=== PATIENT | female | born 1990 | race Caucasian/White ===

== ENCOUNTER 2021-08-24 12:01 | Emergency (ER) | payer OTHER ==
--- NOTE | 2021-08-24 12:12 | ERPHSYRPT ---
- History of Present Illness Time Seen by Provider: 08/24/21 12:11 Source: patient, family Exam Limitations: no limitations Physician History: This is a right-handed 31-year-old female who was consuming a large amount of alcohol over 2 days ago and fell onto a ge nail. The entire nail was removed from the site per patient report. She suffered a 1 cm skin laceration to the left forearm. She has been using topical antibiotic ointment. She has been keeping it clean with soap and water. She is here primarily for a tetanus injection. Timing/Duration: day(s) (Greater than 2 days ago) Quality: other (No significant pain) Location: extremities (Left forearm) Possible Causes: other (Fall onto a ge nail) Modifying Factors: Improves With: other (Topical antibiotic) Associated Symptoms: denies symptoms Allergies/Adverse Reactions: penicillin G Allergy (Severe, Verified 08/24/21 12:49) Shortness of Breath Penicillins Allergy (Verified 08/24/21 12:49) Hx Tetanus, Diphtheria Vaccination/Date Given: Yes (up to date) Hx Influenza Vaccination/Date Given: No Hx Pneumococcal Vaccination/Date Given: No Travel Risk - International Travel Have you traveled outside of the country in past 3 weeks: No - Coronavirus Screening Are you exhibiting any of the following symptoms?: No Close contact with a COVID-19 positive Pt in past 14-21 Days: No - Vaccine Status Have you recieved a Covid-19 vaccination: No - Review of Systems Constitutional: No Symptoms Eyes: No Symptoms Ears, Nose, & Throat: No Symptoms Respiratory: No Symptoms Cardiac: No Symptoms Abdominal/Gastrointestinal: No Symptoms Genitourinary Symptoms: No Symptoms Musculoskeletal: No Symptoms Skin: Other (1 cm laceration that is healing without evidence of pus or drainage from the site on the left forearm) Neurological: No Symptoms Psychological: No Symptoms Endocrine: No Symptoms Hematologic/Lymphatic: No Symptoms Immunological/Allergic: No Symptoms All Other Systems: Reviewed and Negative - Past Medical History Pertinent Past Medical History: Yes Neurological History: No Pertinent History, Migraines ENT History: No Pertinent History Cardiac History: No Pertinent History Respiratory History: Asthma Endocrine Medical History: No Pertinent History, Hypoglycemia Musculoskeletal History: No Pertinent History GI Medical History: No Pertinent History, Gallbladder Disease History: No Pertinent History Psycho-Social History: No Pertinent History, Depression, Anxiety Female Reproductive Disorders: No Pertinent History Other Medical History: sulfa burps - Past Surgical History Past Surgical History: Yes Neuro Surgical History: No Pertinent History Cardiac: No Pertinent History Respiratory: No Pertinent History Gastrointestinal: No Pertinent History, Cholecystectomy Genitourinary: No Pertinent History Musculoskeletal: No Pertinent History Female Surgical History: No Pertinent History, Tubal Ligation Other Surgical History: tubal Oct 2017 - Social History Smoking Status: Current every day smoker How long have you smoked: 10 years Exposure to second hand smoke: Yes Alcohol Use: None Drug Use: marijuana, none Patient Lives Alone: No Significant Family History: no pertinent family hx - Physical Exam General Appearance: no apparent distress, alert Eye Exam: PERRL/EOMI, eyes nml inspection Ears, Nose, Throat Exam: normal ENT inspection, moist mucous membranes Neck Exam: normal inspection, non-tender, supple, full range of motion Respiratory Exam: airway intact, No chest tenderness, No respiratory distress Gastrointestinal/Abdomen Exam: No tenderness Pelvic Exam: not done Rectal Exam: not done Back Exam: normal inspection, normal range of motion, CVA tenderness Extremity Exam: normal range of motion, lacerations (1 cm healing laceration without evidence of foreign body or drainage present. No significant tenderness to the area and no expressible fluid from the site.) Neurologic Exam: alert, oriented x 3, cooperative, security engineer II-XII nml as tested, normal mood/affect, nml cerebellar function, nml station & gait, sensation nml Skin Exam: laceration (See above) Lymphatic Exam: No adenopathy SpO2 Interpretation: normal O2 Delivery: Room Air - Course Nursing assessment & vital signs reviewed: Yes Ordered Tests: Medication Summary Discontinued Medications Generic Name Dose Route Start Last Admin Trade Name Nerissa PRN Reason Stop Dose Admin Diphtheria/Tetanus/Acell Pertussis 0.5 ml 08/24/21 12:26 Tdap --Diph,Pertuss(Acell),Tet Vac/Pf 0.5 Ml Vial IM 08/24/21 12:27 .ONCE ONE - Progress Progress: unchanged Progress Note: 08/24/21 12:54 Medical decision making: This patient's laceration is over 48 hours old. At this point, it appears to be healing well. I will prescribe her 5 days of an antibiotic to help prevent any infection from occurring. We will have her stop the topical antibiotic as there was a puncture present with the nail. There is no evidence of any retained foreign body and she completely remove the nail from the site per her report. Therefore, I will not perform an x-ray of the site. We will update her tetanus vaccination status. At this point, there is no need for any laceration repair Counseled pt/family regarding: diagnosis, need for follow-up - Departure Departure Disposition: Home Clinical Impression: Forearm laceration Condition: Stable Critical Care Time: No Referrals: DOCTOR,NO FAMILY [Primary Care Provider] - Follow up/PCP as directed Additional Instructions: Keep site clean daily with soap and water. Stop your topical antibiotic to the site. Take your oral antibiotics as prescribed. Use Tylenol and ibuprofen for pain control. Prescriptions: Smz/Tmp Ds Tablet [Bactrim Ds Tablet] 1 udtab PO BID #10 tablet
[2021-08-24] MEDS ORDERED: Adacel Vial IM ONE ×2 (12:26→12:55)
[2021-08-24 13:04] VITALS: O2SAT 98
[2021-08-24 13:54] VITALS: BP 123/88; PULSE 78
== END 2021-08-24 13:54 | disposition home or self-care (01) ==
LOC: ED 12:01
DX: S51.812A Laceration without foreign body of left forearm, initial encounter (principal); W19.XXXA Unspecified fall, initial encounter; W45.0XXA Nail entering through skin, initial encounter; Z72.0 Tobacco use; Z28.310 Unvaccinated for COVID-19
CPT/HCPCS: 90471; 90715; 99283

== ENCOUNTER 2022-06-10 22:13 | Emergency (ER) | payer OTHER ==
[2022-06-10] MEDS ORDERED: TYLENOL 325 MG PO ONE (23:28)
[2022-06-10] MEDS ORDERED: KEFLEX 500 MG ONE (23:35)
[2022-06-10] MEDS ORDERED: TYLENOL 325 MG ONE (23:35)
[2022-06-10] MEDS ORDERED: KEFLEX 500 MG PO ONE (23:36)
[2022-06-10 23:41] VITALS: BP 107/81; PULSE 69
[2022-06-10 23:42] VITALS: O2SAT 98
--- NOTE | 2022-06-10 23:42 | ERPHSYRPT ---
- History of Present Illness Time Seen by Provider: 06/10/22 23:33 Exam Limitations: no limitations Patient Subjective Stated Complaint: pt states I have this ear pain in addition to a sinus infection Triage Nursing Assessment: pt ambulated into the er; pt is axo x4; c/o left ear pain; no respiratory distress present; skin PDW; middle left ear is red; intermitten cough present; c/o nasal drainage; vitals wnl Physician History: 32-year-old female presents to our ED for evaluation of left ear pain and sinus tenderness for approximately 1 week. Symptoms are progressive. No ear drainage. No headache. No nausea or vomiting. No blurred vision. No headache. Symptoms are mild to moderate in intensity. No specific worsening improving factors. Patient voices no other complaints or concerns at this time. Advised that she is allergic to penicillin but she has had Keflex in the past without any complications. Timing/Duration: persistent Severity: moderate ENT Location: ear (L) Prearrival Treatment: no prearrival treatment Modifying Factors: Improves With: nothing Associated Symptoms: denies symptoms Allergies/Adverse Reactions: penicillin G Allergy (Severe, Verified 06/10/22 22:25) Shortness of Breath Penicillins Allergy (Verified 06/10/22 22:25) Home Medications: Paroxetine HCl 20 mg [Paxil 20 MG] 30 mg PO DAILY 06/10/22 [History] Hx Tetanus, Diphtheria Vaccination/Date Given: Yes Hx Influenza Vaccination/Date Given: No Hx Pneumococcal Vaccination/Date Given: No Travel Risk - International Travel Have you traveled outside of the country in past 3 weeks: No - Coronavirus Screening Are you exhibiting any of the following symptoms?: Yes Symptoms: Cough: New Onset Close contact with a COVID-19 positive Pt in past 14-21 Days: No - Vaccine Status Have you recieved a Covid-19 vaccination: Yes 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 - Review of Systems Constitutional: No Symptoms, No Fever, No Chills Eyes: No Symptoms Ears, Nose, & Throat: No Symptoms Respiratory: No Symptoms, No Cough, No Dyspnea Cardiac: No Symptoms, No Chest Pain, No Edema, No Syncope Abdominal/Gastrointestinal: No Symptoms, No Abdominal Pain, No Nausea, No Vomiting, No Diarrhea Genitourinary Symptoms: No Symptoms, No Dysuria Musculoskeletal: No Symptoms, No Back Pain, No Neck Pain Skin: No Symptoms, No Rash Neurological: No Symptoms, No Dizziness, No Focal Weakness, No Sensory Changes Psychological: No Symptoms Endocrine: No Symptoms Hematologic/Lymphatic: No Symptoms Immunological/Allergic: No Symptoms All Other Systems: Reviewed and Negative - Past Medical History Pertinent Past Medical History: Yes Neurological History: No Pertinent History, Migraines ENT History: No Pertinent History Cardiac History: No Pertinent History Respiratory History: Asthma Endocrine Medical History: Hypoglycemia Musculoskeletal History: No Pertinent History GI Medical History: Gallbladder Disease History: No Pertinent History Psycho-Social History: Depression, Anxiety Female Reproductive Disorders: No Pertinent History Other Medical History: sulfa burps, PTSD - Past Surgical History Past Surgical History: Yes Neuro Surgical History: No Pertinent History Cardiac: No Pertinent History Respiratory: No Pertinent History Gastrointestinal: Cholecystectomy Genitourinary: No Pertinent History Musculoskeletal: No Pertinent History Female Surgical History: Tubal Ligation Other Surgical History: tubal Oct 2017 - Social History Smoking Status: Light tobacco smoker How long have you smoked: 10 years Exposure to second hand smoke: Yes Alcohol Use: None Drug Use: none Patient Lives Alone: No Significant Family History: no pertinent family hx - Female History Hx Now: No - Nursing Vital Signs Nursing Vital Signs: Initial Vital Signs Temperature 98.1 F 06/10/22 22:27 Pulse Rate 96 H 06/10/22 22:27 Respiratory Rate 14 06/10/22 22:27 Blood Pressure 124/89 06/10/22 22:27 O2 Sat by Pulse Oximetry 98 06/10/22 22:27 Pain Scale Pain Intensity 6 - Physical Exam General Appearance: no apparent distress, alert Eye Exam: bilateral eye: normal inspection, PERRL, EOMI Ear Exam: right ear: auricle normal, canal normal, TM normal, bleeding Nasal Exam: normal inspection, sinus tenderness (Some left maxillary sinus tenderness) Throat Exam: normal, pharynx normal, moist mucus membranes, No tonsillar exudate Neck Exam: normal inspection, non-tender, supple, full range of motion Cardiovascular/Respiratory Exam: chest non-tender, normal breath sounds, regular rate/rhythm Abdominal Exam: non-tender, soft Neurologic Exam: alert, oriented x 3, cooperative, sensation nml, No motor deficits Skin Exam: normal color, warm, dry SpO2 Interpretation: normal SpO2: 98 O2 Delivery: Room Air - Course Nursing assessment & vital signs reviewed: Yes Ordered Tests: Medication Summary Discontinued Medications Generic Name Dose Route Start Last Admin Trade Name Nerissa PRN Reason Stop Dose Admin Acetaminophen 975 mg 06/10/22 23:28 Acetaminophen 325 Mg Tablet PO 06/10/22 23:29 STAT ONE - Progress Progress: improved Progress Note: 32-year-old female presents with left ear pain and sinus tenderness. Physical exam reveals otitis media and otitis externa. There is some evidence of sinusitis. Complexity of problem addressed is low acute noncomplicated Complexity of data reviewed and analyzed is none. No specialized testing. Diagnosis based on history and physical examination. Risk of complication and or risk of morbidity/mortality patient management is moderate. Patient received a prescription for Ciprodex as well as Keflex. A dose of Keflex was administered in our ED. Patient also received a dose of Tylenol for pain control. Patient patient ready for discharge. She voices no other complaints concerns at this time. No social determinants of health present to impede follow-up. Vital stable. Patient voices no other complaints or concerns at this time. Portions of this note were created with voice recognition technology. There may be grammatical, spelling, punctuation or sound alike errors 06/10/22 23:48 Counseled pt/family regarding: diagnosis, need for follow-up - Departure Departure Disposition: Home Clinical Impression: Otitis media, Otitis externa, Sinusitis Condition: Stable Critical Care Time: No Referrals: CE MILLER [Primary Care Provider] - Follow up/PCP as directed Additional Instructions: Discharge/Care Plan GABRIELLE EL was seen on 06/10/22 in the Emergency Room. The patient was counseled regarding Diagnosis,Lab results, Imaging studies, need for follow up and when to return to the Emergency Room. Prescriptions given: Discharge Note I have spoken with the patient and/or caregivers. I have explained the patient's condition, diagnosis and treatment plan based on the information available to me at this time. I have answered the patient's and/or caregiver's questions and addressed any concerns. The patient and/or caregivers have as good understanding of the patient's diagnosis, condition and treatment plan as can be expected at this point. The vital signs have been stable. The patient's condition is stable and appropriate for discharge from the emergency department. The patient will pursue further outpatient evaluation with the primary care physician or other designated or consulting physician as outlined in the discharge instructions. The patient and/or caregivers are agreeable to this plan of care and follow-up instructions have been explained in detail. The patient and/or caregivers have received these instruction. The patient/and or caregivers are aware that any significant change in condition or worsening of symptoms should prompt an immediate return to this or the closest emergency department or call 911. Prescriptions: Ciprofloxacin HCl/Dexameth [Ciproflox-Dexameth Otic Susp] 4 drops OT TID 7 Days #1 unit Cephalexin Mh 500 mg [Keflex 500 mg] 500 mg PO TID 7 Days #21 cap
== END 2022-06-10 23:55 | disposition home or self-care (01) ==
LOC: ED 22:13
DX: H66.92 Otitis media, unspecified, left ear (principal); H60.92 Unspecified otitis externa, left ear; J32.9 Chronic sinusitis, unspecified; Z79.899 Other long term (current) drug therapy; Z72.0 Tobacco use
CPT/HCPCS: 99282; A9270-GY

== ENCOUNTER 2022-09-03 00:33 | Emergency (ER) | payer OTHER ==
[2022-09-03 01:22] LABS: Absolute Neutrophil Ct (ANC) 16.62 x10^3/uL (1.4-6.9); BASOPHIL % 0.2 % (0.0-0.4); Basophil (Absolute #) 0.04 x10^3/uL (0-0.4); Eosinophil % 0.1 % (0.00-5.0); Eosinophil (Absolute #) 0.01 x10^3/uL (0-0.5); Hematocrit 37.3 % (35-47); Hemoglobin 12.4 g/dL (12.0-16.0); IMMATURE GRAN # 0.11 x10^3u/L (0.00-0.03); IMMATURE GRAN % 0.6 % (0.00-0.4); Lymphocyte (Absolute #) 0.67 x10^3/uL (1.0-4.6); Lymphocytes % 3.7 % (24.0-44.0); Mean Cell Volume 86.3 fL (78-100); Mean Corpuscular Hemoglobin 28.7 pg (26-32); Mean Corpuscular Hgb Concent. 33.2 g/dL (32-36); Mean Platelet Volume 9.4 fL (7.5-11.0); Monocyte (Absolute #) 0.46 x10^3/uL (0.0-1.3); Monocytes % 2.6 % (0.0-12.0); Neutrophil % 92.8 % (36.0-66.0); Platelet Count 210 x10^3/uL (150-450); Red Blood Count 4.32 x10^6/uL (4.1-5.4); Red Cell Distribution Width 12.9 % (11.5-14.0); White Blood Count 17.9 x10^3/uL (4.0-10.5)
[2022-09-03 01:33] LABS: ALBUMIN 3.7 g/dL (3.5-5.0); ALKALINE PHOSPHATASE 130 U/L (38-126); ANION GAP 15.9 MEQ/L (5-15); BLOOD UREA NITROGEN 8 mg/dL (7-17); CHLORIDE 100 mmol/L (98-107); Calcium 8.2 mg/dL (8.4-10.2); Carbon Dioxide 19 mmol/L (22-30); EST GLOMERULAR FILTRATION RATE > 60.0 ML/MIN; Glucose 144 mg/dL (74-106); SGOT/AST 47 U/L (14-36); SODIUM 133 mmol/L (137-145); Total Protein 7.3 g/dL (6.3-8.2)
[2022-09-03] MEDS ORDERED: Sodium Chloride 0.9% 1000 ML 1,000 ML ONE ×2 (01:34→02:21)
[2022-09-03] MEDS: Sodium Chloride 0.9% 1000 ML 1,000 ML IV STA ×2 (01:35→02:48)
[2022-09-03 01:40] LABS: SGPT/ALT 49 U/L (0-35)
[2022-09-03 01:56] LABS: INFLUENZA A NEGATIVE (NEGATIVE); INFLUENZA B NEGATIVE (NEGATIVE); RESPIRATORY SYNCTIAL VIRUS NEGATIVE (NEGATIVE); SARS-CoV-2 Xpert Express NEGATIVE (NEGATIVE)
[2022-09-03 02:04] LABS: ADD URINE CULTURE? YES (NO); Appearance Cloudy (Clear); Bacteria Many /HPF (None Seen); Bilirubin Negative (Negative); Blood Moderate (Negative); Epithelial Cells Rare /HPF (None Seen); Glucose, Urine 250 mg/dL (Negative); Ketones Trace (Negative); Leukocyte Esterase Moderate (Negative); Nitrite Positive (Negative); Ph 5.5 (4.6-8.0); Protein,Urine Dip 300 (Negative); WBC 21-50 /HPF (0-5)
[2022-09-03] MEDS ORDERED: LEVOFLOXACIN 750MG/150ML D5W 750 MG/150 ML BAG IV ONE (02:21)
[2022-09-03] MEDS: LEVOFLOXACIN 750MG/150ML D5W 750 MG/150 ML BAG IV STA (02:28)
[2022-09-03] MEDS ORDERED: ROCEPHIN 1 Gm-D5w 50 ml Bag** 1 G/50 ML IVPB IV ONE (02:31)
[2022-09-03] MEDS ORDERED: K-LYTE ONE (02:31)
[2022-09-03] MEDS: K-LYTE PO ONE (02:35)
[2022-09-03] MEDS: ROCEPHIN 1 Gm-D5w 50 ml Bag** 1 G/50 ML IVPB IV STA (02:35)
[2022-09-03 02:45] VITALS: PULSE 112; O2SAT 96
--- NOTE | 2022-09-03 03:18 | ERPHSYRPT ---
- History of Present Illness Time Seen by Provider: 09/03/22 00:50 Source: patient Exam Limitations: no limitations Patient Subjective Stated Complaint: pt to ER with complaints of body aches, sweats, headache, fever, sob that started this morning around 0300. pt states sh dillon forgot to take her paxil and just started up adipex again Triage Nursing Assessment: Pt A&Ox4. pt ambulatory. skin warm, moist and pink. Physician History: Patient is a 32-year-old white female who presents with a complaint of sniffles fever cold sweats and body aches. She also complains of some nausea and back pain and headache. She also has had a runny nose. Timing/Duration: yesterday Severity: moderate Associated Symptoms: cough, fever Allergies/Adverse Reactions: penicillin G Allergy (Severe, Verified 09/03/22 00:49) Shortness of Breath Penicillins Allergy (Verified 09/03/22 00:49) Home Medications: Paroxetine HCl 20 mg [Paxil 20 MG] 30 mg PO DAILY 06/10/22 [History] Phentermine HCl 1 tab PO DAILY 09/03/22 [History] Hx Tetanus, Diphtheria Vaccination/Date Given: Yes Hx Influenza Vaccination/Date Given: No Hx Pneumococcal Vaccination/Date Given: No Travel Risk - International Travel Have you traveled outside of the country in past 3 weeks: No - Coronavirus Screening Are you exhibiting any of the following symptoms?: Yes Symptoms: Fever, Shortness of Breath, Headaches/Body Aches/Fatigue Close contact with a COVID-19 positive Pt in past 14-21 Days: No - Vaccine Status Have you recieved a Covid-19 vaccination: Yes 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: [employer] - Review of Systems Constitutional: Fever, Chills, Night Sweats Eyes: No Symptoms Ears, Nose, & Throat: Nose Congestion Respiratory: Cough, No Dyspnea Cardiac: No Chest Pain, No Edema, No Syncope Abdominal/Gastrointestinal: Nausea, No Abdominal Pain, No Vomiting, No Diarrhea Genitourinary Symptoms: No Dysuria Musculoskeletal: Back Pain, No Neck Pain Skin: No Rash Neurological: No Dizziness, No Focal Weakness, No Sensory Changes Psychological: No Symptoms Endocrine: No Symptoms All Other Systems: Reviewed and Negative - Past Medical History Pertinent Past Medical History: Yes Neurological History: No Pertinent History, Migraines ENT History: No Pertinent History Cardiac History: No Pertinent History Respiratory History: Asthma Endocrine Medical History: Hypoglycemia Musculoskeletal History: No Pertinent History GI Medical History: Gallbladder Disease History: No Pertinent History Psycho-Social History: Depression, Anxiety Female Reproductive Disorders: No Pertinent History Other Medical History: sulfa burps, PTSD - Past Surgical History Past Surgical History: Yes Neuro Surgical History: No Pertinent History Cardiac: No Pertinent History Respiratory: No Pertinent History Gastrointestinal: Cholecystectomy Genitourinary: No Pertinent History Musculoskeletal: No Pertinent History Female Surgical History: Tubal Ligation Other Surgical History: tubal Oct 2017 - Social History Smoking Status: Former smoker How long have you smoked: 10 years Exposure to second hand smoke: Yes Alcohol Use: None Drug Use: marijuana Patient Lives Alone: No Significant Family History: no pertinent family hx - Female History Hx Now: No - Nursing Vital Signs Nursing Vital Signs: Initial Vital Signs Temperature 99.0 F 09/03/22 00:39 Pulse Rate 108 H 09/03/22 00:39 Respiratory Rate 18 09/03/22 00:39 Blood Pressure 126/76 09/03/22 00:39 O2 Sat by Pulse Oximetry 97 09/03/22 00:39 Pain Scale Pain Intensity 6 - Physical Exam General Appearance: mild distress, alert Eye Exam: PERRL/EOMI, eyes nml inspection Ears, Nose, Throat Exam: normal ENT inspection, TMs normal, pharynx normal, mois t mucous membranes Neck Exam: normal inspection, non-tender, supple, full range of motion Respiratory Exam: normal breath sounds, lungs clear, No respiratory distress Cardiovascular Exam: regular rate/rhythm, normal heart sounds, normal peripheral pulses Gastrointestinal/Abdomen Exam: soft, normal bowel sounds, No tenderness, No mass Back Exam: normal inspection, normal range of motion, No CVA tenderness, No vertebral tenderness Extremity Exam: normal inspection, normal range of motion, pelvis stable Neurologic Exam: alert, oriented x 3, cooperative, normal mood/affect, nml cerebellar function, nml station & gait, sensation nml, No motor deficits Skin Exam: normal color, warm, dry, No rash Lymphatic Exam: No adenopathy SpO2 Interpretation: normal SpO2: 96 O2 Delivery: Room Air - Course Nursing assessment & vital signs reviewed: Yes - Radiology Exams Chest X-ray Interpretation: Interpreted by me, Negative Ordered Tests: Active Orders 24 hr Category Date Time Status IV Insertion STAT Care 09/03/22 00:59 Active CHEST 1 VIEW (PORTABLE) Stat Exams 09/03/22 01:19 Taken BLOOD CULTURE Stat Lab 09/03/22 01:30 Received CBC W DIFF Stat Lab 09/03/22 01:10 Completed CMP Stat Lab 09/03/22 01:10 Completed CULTURE,URINE Stat Lab 09/03/22 01:30 Received Lactic Acid Routine Lab 09/03/22 03:08 Completed Lactic Acid Stat Lab 09/03/22 01:11 Completed UA W/RFX UR CULTURE Stat Lab 09/03/22 01:30 Completed Medication Summary Generic Name Dose Route Start Last Admin Trade Name Freq PRN Reason Stop Dose Admin Levofloxacin/Dextrose 750 mg in 150 mls @ 100 mls/hr 09/03/22 02:16 09/03/22 02:28 Levofloxacin 750mg/150ml D5w IV 09/03/22 03:45 100 mls/hr STAT STA 100 mls/hr Administration Discontinued Medications Generic Name Dose Route Start Last Admin Trade Name Freq PRN Reason Stop Dose Admin Sodium Chloride 1,000 mls @ 999 mls/hr 09/03/22 00:59 09/03/22 01:35 Sodium Chloride 0.9% 1000 Ml IV 09/03/22 01:59 999 mls/hr .Q1H1M STA Administration Sodium Chloride Confirm 09/03/22 01:34 Sodium Chloride 0.9% 1000 Ml Administered 09/03/22 01:35 Dose 1,000 mls @ ud .ROUTE .STK-MED ONE Sodium Chloride 1,000 mls @ 999 mls/hr 09/03/22 02:17 09/03/22 02:48 Sodium Chloride 0.9% 1000 Ml IV 09/03/22 03:17 999 mls/hr .Q1H1M STA Administration Sodium Chloride Confirm 09/03/22 02:21 Sodium Chloride 0.9% 1000 Ml Administered 09/03/22 02:22 Dose 1,000 mls @ ud .ROUTE .STK-MED ONE Levofloxacin/Dextrose Confirm 09/03/22 02:21 Levofloxacin 750mg/150ml D5w Administered 09/03/22 02:22 Dose 750 mg in 150 mls @ ud IV .STK-MED ONE Ceftriaxone Sodium/Dextrose 1 g in 50 mls @ 100 mls/hr 09/03/22 02:27 09/03/22 02:35 Rocephin 1 Gm-D5w 50 Ml Bag IV 09/03/22 02:56 100 mls/hr STAT STA 100 mls/hr Administration Ceftriaxone Sodium/Dextrose Confirm 09/03/22 02:31 Rocephin 1 Gm-D5w 50 Ml Bag Administered 09/03/22 02:32 Dose 1 g in 50 mls @ ud IV .STK-MED ONE Potassium Bicarbonate 50 meq 09/03/22 02:30 09/03/22 02:35 Potassium Bicarbonate 25 Meq Tab PO 09/03/22 02:31 50 meq STAT ONE Administration Potassium Bicarbonate Confirm 09/03/22 02:31 Potassium Bicarbonate 25 Meq Tab Administered 09/03/22 02:32 Dose 50 meq .ROUTE .STK-MED ONE Lab/Rad Data: Laboratory Result Diagrams 09/03/22 01:10 09/03/22 01:10 Laboratory Results 09/03/22 09/03/22 09/03/22 Range/Units 03:08 01:30 01:11 WBC (4.0-10.5) x10^3/uL RBC (4.1-5.4) x10^6/uL Hgb (12.0-16.0) g/dL Hct (35-47) % MCV (78-100) fL MCH (26-32) pg MCHC (32-36) g/dL RDW (11.5-14.0) % Plt Count (150-450) x10^3/uL MPV (7.5-11.0) fL Gran % (36.0-66.0) % Immature Gran % (Auto) (0.00-0.4) % Nucleat RBC Rel Count (0.00-0.1) % Eos # (Auto) (0-0.5) x10^3/uL Immature Gran # (Auto) (0.00-0.03) x10^3u/L Absolute Lymphs (auto) (1.0-4.6) x10^3/uL Absolute Monos (auto) (0.0-1.3) x10^3/uL Absolute Nucleated RBC (0.00-0.01) x10^3u/L Lymphocytes % (24.0-44.0) % Monocytes % (0.0-12.0) % Eosinophils % (0.00-5.0) % Basophils % (0.0-0.4) % Absolute Granulocytes (1.4-6.9) x10^3/uL Basophils # (0-0.4) x10^3/uL Sodium (137-145) mmol/L Potassium (3.5-5.1) mmol/L Chloride (98-107) mmol/L Carbon Dioxide (22-30) mmol/L Anion Gap (5-15) MEQ/L BUN (7-17) mg/dL Creatinine (0.52-1.04) mg/dL Estimated GFR ML/MIN Glucose (74-106) mg/dL Lactic Acid 0.9 3.7 H (0.4-2.0) Calcium (8.4-10.2) mg/dL Total Bilirubin (0.2-1.3) mg/dL AST (14-36) U/L ALT (0-35) U/L Alkaline Phosphatase (38-126) U/L Serum Total Protein (6.3-8.2) g/dL Albumin (3.5-5.0) g/dL Urine Color Yellow (Yellow) Urine Appearance Cloudy A (Clear) Urine pH 5.5 (4.6-8.0) Ur Specific [place] 1.010 (1.005-1.030) Urine Protein 300 A (Negative) Urine Glucose (UA) 250 A (Negative) mg/dL Urine Ketones Trace A (Negative) Urine Blood Moderate A (Negative) Urine Nitrite Positive A (Negative) Urine Bilirubin Negative (Negative) Urine Urobilinogen 2.0 A (0.2) mg/dL Ur Leukocyte Esterase Moderate A (Negative) U Hyaline Cast (Auto) 3-5 A (0-2) /LPF Urine Microscopic RBC 6-10 A (0-5) /HPF Urine Microscopic WBC 21-50 A (0-5) /HPF Ur Epithelial Cells Rare (None Seen) /HPF Urine Bacteria Many A (None Seen) /HPF Urine Culture Reflexed YES (NO) Influenza Type A Ag (NEGATIVE) Influenza Type B Ag (NEGATIVE) RSV (PCR) (NEGATIVE) SARS-CoV-2 (PCR) (NEGATIVE) 09/03/22 09/03/22 09/03/22 Range/Units 01:10 01:10 01:10 WBC 17.9 H (4.0-10.5) x10^3/uL RBC 4.32 (4.1-5.4) x10^6/uL Hgb 12.4 (12.0-16.0) g/dL Hct 37.3 (35-47) % MCV 86.3 (78-100) fL MCH 28.7 (26-32) pg MCHC 33.2 (32-36) g/dL RDW 12.9 (11.5-14.0) % Plt Count 210 (150-450) x10^3/uL MPV 9.4 (7.5-11.0) fL Gran % 92.8 H (36.0-66.0) % Immature Gran % (Auto) 0.6 H (0.00-0.4) % Nucleat RBC Rel Count 0.0 (0.00-0.1) % Eos # (Auto) 0.01 (0-0.5) x10^3/uL Immature Gran # (Auto) 0.11 H (0.00-0.03) x10^3u/L Absolute Lymphs (auto) 0.67 L (1.0-4.6) x10^3/uL Absolute Monos (auto) 0.46 (0.0-1.3) x10^3/uL Absolute Nucleated RBC 0.00 (0.00-0.01) x10^3u/L Lymphocytes % 3.7 L (24.0-44.0) % Monocytes % 2.6 (0.0-12.0) % Eosinophils % 0.1 (0.00-5.0) % Basophils % 0.2 (0.0-0.4) % Absolute Granulocytes 16.62 H (1.4-6.9) x10^3/uL Basophils # 0.04 (0-0.4) x10^3/uL Sodium 133 L (137-145) mmol/L Potassium 3.0 L* (3.5-5.1) mmol/L Chloride 100 (98-107) mmol/L Carbon Dioxide 19 L (22-30) mmol/L Anion Gap 15.9 H (5-15) MEQ/L BUN 8 (7-17) mg/dL Creatinine 0.70 (0.52-1.04) mg/dL Estimated GFR > 60.0 ML/MIN Glucose 144 H (74-106) mg/dL Lactic Acid (0.4-2.0) Calcium 8.2 L (8.4-10.2) mg/dL Total Bilirubin 1.60 H (0.2-1.3) mg/dL AST 47 H (14-36) U/L ALT 49 H (0-35) U/L Alkaline Phosphatase 130 H (38-126) U/L Serum Total Protein 7.3 (6.3-8.2) g/dL Albumin 3.7 (3.5-5.0) g/dL Urine Color (Yellow) Urine Appearance (Clear) Urine pH (4.6-8.0) Ur Specific [place] (1.005-1.030) Urine Protein (Negative) Urine Glucose (UA) (Negative) mg/dL Urine Ketones (Negative) Urine Blood (Negative) Urine Nitrite (Negative) Urine Bilirubin (Negative) Urine Urobilinogen (0.2) mg/dL Ur Leukocyte Esterase (Negative) U Hyaline Cast (Auto) (0-2) /LPF Urine Microscopic RBC (0-5) /HPF Urine Microscopic WBC (0-5) /HPF Ur Epithelial Cells (None Seen) /HPF Urine Bacteria (None Seen) /HPF Urine Culture Reflexed (NO) Influenza Type A Ag NEGATIVE (NEGATIVE) Influenza Type B Ag NEGATIVE (NEGATIVE) RSV (PCR) NEGATIVE (NEGATIVE) SARS-CoV-2 (PCR) NEGATIVE (NEGATIVE) - Progress Progress: improved Medical Desision Making - Independent Historian Additional History obtained from: Spouse - Diagnostic Testing Diagnostic test were ordered, analyzed, and reviewed by me: Yes Radiological Interpretation: Interpreted by me - Risk of complications Low Risk: Low risk of morbidity from additional dx testing or treatment - Departure Departure Disposition: Home Clinical Impression: Urinary tract infection, Hypokalemia, Elevated liver function tests Condition: Stable Critical Care Time: No Referrals: CE MILLER [Primary Care Provider] - Follow up/PCP as directed Instructions: Urinary Tract Infection, Adult (DC) Prescriptions: Cephalexin Mh 500 mg [Keflex 500 mg] 500 mg PO QID #40 cap levoFLOXacin [Levofloxacin] 750 mg PO DAILY 10 Days #10 tablet
[2022-09-03 03:34] VITALS: BP 110/52
--- NOTE | 2022-09-03 08:42 | XRAY ---
Indication: Fever and bodyaches. Comparison: December 10, 2012 Portable chest again demonstrates normal heart, lungs, and bony thorax.
== END 2022-09-03 04:06 | disposition home or self-care (01) ==
LOC: ED 00:33
DX: N39.0 Urinary tract infection, site not specified (principal); E87.6 Hypokalemia; R94.5 Abnormal results of liver function studies; R50.9 Fever, unspecified; M79.10 Myalgia, unspecified site; R11.0 Nausea; M54.9 Dorsalgia, unspecified; R51.9 Headache, unspecified; Z79.899 Other long term (current) drug therapy
CPT/HCPCS: 0241U; 36000; 36415; 71045; 80053; 81001; 83605; 85025; 87040; 87077; 87086; 87186; 99284; 96360; 96361; 96365; 96367; J0696; J1956; A9270-GY

== ENCOUNTER 2024-05-01 18:43 | Emergency (ER) | payer OTHER ==
[2024-05-01 18:52] VITALS: TEMP 96.8
[2024-05-01] MEDS ORDERED: solu-MEDROL ONE (18:59)
[2024-05-01] MEDS ORDERED: Sterile H2O 10 ml IJ ONE (18:59)
[2024-05-01] MEDS: solu-MEDROL 125 MG, Sterile H2O 10 ml 2 ML IV ONE (19:00)
[2024-05-01] MEDS ORDERED: DUONEB 0.5-3 MG/3 ml Neb IH ONE ×2 (19:01→22:14)
[2024-05-01] MEDS: DUONEB 0.5-3 MG/3 ml Neb IH ONE ×2 (19:19→22:16)
[2024-05-01 19:32] LABS: Absolute Neutrophil Ct (ANC) 7.74 x10^3/uL (1.56-6.13); Basophil (Absolute #) 0.15 x10^3/uL (0.01-0.08); Eosinophil % 6.4 % (0.7-5.8); Eosinophil (Absolute #) 0.96 x10^3/uL (0.04-0.36); Hematocrit 41.5 % (34.1-44.9); Hemoglobin 14.3 g/dL (11.2-15.7); IMMATURE GRAN # 0.05 x10^3u/L (0.001-0.031); IMMATURE GRAN % 0.3 % (0.001-0.429); Lymphocyte (Absolute #) 4.91 x10^3/uL (1.18-3.74); Lymphocytes % 32.9 % (19.3-51.7); Mean Cell Volume 84.5 fL (79.4-94.8); Mean Corpuscular Hemoglobin 29.1 pg (25.6-32.2); Mean Corpuscular Hgb Concent. 34.5 g/dL (32.2-35.5); Mean Platelet Volume 9.9 fL (9.4-12.3); Monocyte (Absolute #) 1.13 x10^3/uL (0.24-0.86); Monocytes % 7.6 % (4.7-12.5); Neutrophil % 51.8 % (34.0-71.1); Platelet Count 294 x10^3/uL (182-369); Red Blood Count 4.91 x10^6/uL (3.93-5.22); Red Cell Distribution Width 12.8 % (11.7-14.4); White Blood Count 14.9 x10^3/uL (3.98-10.04)
[2024-05-01 19:47] LABS: ALBUMIN 4.4 g/dL (3.5-5.0); ANION GAP 17.9 MEQ/L (5-15); BILIRUBIN,TOTAL 0.4 mg/dL (0.2-1.3); Calcium 9.5 mg/dL (8.4-10.2); Creatinine 1 0.66 mg/dL (0.52-1.04); EST GLOMERULAR FILTRATION RATE 118.7 ML/MIN; Potassium 3.9 mmol/L (3.5-5.1); Total Protein 7.9 g/dL (6.3-8.2)
[2024-05-01 20:01] VITALS: O2SAT 97
[2024-05-01 20:11] LABS: INFLUENZA A NEGATIVE (NEGATIVE); INFLUENZA B NEGATIVE (NEGATIVE); RESPIRATORY SYNCTIAL VIRUS NEGATIVE (NEGATIVE); SARS-CoV-2 Xpert Express NEGATIVE (NEGATIVE)
--- NOTE | 2024-05-01 21:15 | ERPHSYRPT ---
- History of Present Illness Time Seen by Provider: 05/01/24 18:55 Source: patient Exam Limitations: no limitations Patient Subjective Stated Complaint: SOB Triage Nursing Assessment: Patient ambulated back to ED and transferred self to bed. Patient A+O X3. Patient's skin flushed, warm and dry. Patient complains of SOB that started earlier today that has gotten worse. Patient states she has chest tightening 5/10. Lungs noted to have wheezing throughout. Patient complains of productive cough with thick clear/green sputum. Physician History: Patient is a 34-year-old female presents to the emergency department for ev aluation of shortness of breath. Patient states symptoms started today. Patient complains of shortness of breath is gotten worse. Patient reports a chest tightening sensation. Patient is wheezing throughout. Wheezing associated with cough. No pain. No trauma no fever symptoms are mild to mode rate in intensity. Symptoms are worse with exertion. Symptoms improved with rest. Patient otherwise feels well. Patient states she has a history of asthma and her symptoms are similar. Patient voices no other complaints or concerns at this time. Portions of this note were created with voice recognition technology. There may be grammatical, spelling, punctuation or sound alike errors Timing/Duration: today Severity: moderate Modifying Factors: Improves With: nothing Associated Symptoms: denies symptoms Allergies/Adverse Reactions: penicillin G Allergy (Severe, Verified 05/01/24 18:45) Shortness of Breath Penicillins Allergy (Verified 05/01/24 18:45) Hx Tetanus, Diphtheria Vaccination/Date Given: Yes Hx Influenza Vaccination/Date Given: Yes Hx Pneumococcal Vaccination/Date Given: No Immunizations Up to Date: Yes Travel Risk - International Travel Have you traveled outside of the country in past 3 weeks: No - Emerging Infectious Disease Are you exhibiting symptoms associated with any current EIDs: No - Review of Systems Constitutional: No Symptoms, No Fever, No Chills Eyes: No Symptoms Ears, Nose, & Throat: No Symptoms Respiratory: No Cough, No Dyspnea Cardiac: No Symptoms, No Chest Pain, No Edema, No Syncope Abdominal/Gastrointestinal: No Symptoms, No Abdominal Pain, No Nausea, No Vomiting, No Diarrhea Genitourinary Symptoms: No Symptoms, No Dysuria Musculoskeletal: No Symptoms, No Back Pain, No Neck Pain Skin: No Symptoms, No Rash Neurological: No Symptoms, No Dizziness, No Focal Weakness, No Sensory Changes Psychological: No Symptoms Endocrine: No Symptoms Hematologic/Lymphatic: No Symptoms Immunological/Allergic: No Symptoms All Other Systems: Reviewed and Negative - Past Medical History Pertinent Past Medical History: Yes Neurological History: No Pertinent History, Migraines ENT History: No Pertinent History Cardiac History: No Pertinent History Respiratory History: Asthma Endocrine Medical History: Hypoglycemia Musculoskeletal History: No Pertinent History GI Medical History: Gallbladder Disease History: No Pertinent History Psycho-Social History: Depression, Anxiety Female Reproductive Disorders: No Pertinent History Other Medical History: sulfa burps, PTSD - Past Surgical History Past Surgical History: Yes Neuro Surgical History: No Pertinent History Cardiac: No Pertinent History Respiratory: No Pertinent History Gastrointestinal: Cholecystectomy Genitourinary: No Pertinent History Musculoskeletal: No Pertinent History Female Surgical History: Tubal Ligation Other Surgical History: tubal Oct 2017 Significant Family History: no pertinent family hx - Female History Hx Last Menstrual Period: last week Hx Now: No - Social History Smoking Status: Never smoker Exposure to second hand smoke: No Drug Use: marijuana - Social Determinants of Health Will the patient participate in the screening: Yes Do you worry about a steady place to live?: No Do you have any problems with any of the following?: No known problems In the past 12 months,have you had to go without utilities?: No Transportation Issues: No Has anyone in your support network made you feel unsafe?: No Have you or anyone in your house had to go w/o enough food: No - Nursing Vital Signs Nursing Vital Signs: Initial Vital Signs Pulse Rate 103 H 05/01/24 18:43 Respiratory Rate 13 05/01/24 18:43 Blood Pressure 174/107 05/01/24 18:43 O2 Sat by Pulse Oximetry 97 05/01/24 18:43 Pain Scale Pain Intensity 0 - Physical Exam General Appearance: no apparent distress, alert Eye Exam: PERRL/EOMI, eyes nml inspection Ears, Nose, Throat Exam: normal ENT inspection, TMs normal, pharynx normal, moist mucous membranes Neck Exam: normal inspection, non-tender, supple, full range of motion Respiratory Exam: normal breath sounds, lungs clear, airway intact, No respiratory distress Cardiovascular Exam: regular rate/rhythm, normal heart sounds, normal peripheral pulses Gastrointestinal/Abdomen Exam: soft, normal bowel sounds, No tenderness, No mass Back Exam: normal inspection, normal range of motion, No CVA tenderness, No vertebral tenderness Extremity Exam: normal inspection, normal range of motion, pelvis stable Neurologic Exam: alert, oriented x 3, cooperative, normal mood/affect, sensation nml, No motor deficits Skin Exam: normal color, warm, dry, No rash Lymphatic Exam: No adenopathy SpO2 Interpretation: normal SpO2: 97 O2 Delivery: Room Air - Course Nursing assessment & vital signs reviewed: Yes EKG Interpreted by Me: RATE (91), Sinus Rhythm, NORMAL AXIS, NORMAL INTERVALS, NORMAL QRS Ordered Tests: Active Orders 24 hr Category Date Time Status Quality Assurance Project Manager STAT Care 05/01/24 18:57 Active EKG-ER Only STAT Care 05/01/24 18:56 Active IV Insertion STAT Care 05/01/24 18:56 Active Pulse Oximetry (ED) STAT Care 05/01/24 18:56 Active CHEST 1 VIEW (PORTABLE) Stat Exams 05/01/24 20:22 Taken BLOOD CULTURE Stat Lab 05/01/24 19:21 Received CBC W DIFF Stat Lab 05/01/24 18:55 Completed CMP Stat Lab 05/01/24 18:55 Completed D-DIMER QUANTITATIVE Stat Lab 05/01/24 18:55 Completed HCG QUALITATIVE, URINE Stat Lab 05/01/24 Ordered TROPONIN Q4H Lab 05/01/24 18:55 Completed TROPONIN Q4H Lab 05/01/24 23:00 Ordered TROPONIN Q4H Lab 05/02/24 03:00 Ordered Respiratory Therapy Assessment DAILY RT 05/01/24 19:20 Active Medication Summary Generic Name Dose Route Start Last Admin Trade Name Freq PRN Reason Stop Dose Admin Albuterol Sulfate 8 gm 05/01/24 22:37 Albuterol Sulfate 8 Gm Mdi Hfa IH 05/31/24 22:36 Q4-6HPRN PRN SHORTNESS OF BREATH Discontinued Medications Generic Name Dose Route Start Last Admin Trade Name Freq PRN Reason Stop Dose Admin Albuterol/Ipratropium 3 ml 05/01/24 18:56 05/01/24 19:19 Ipratropium/Albuterol Sulfate 3 Ml Ampul.Neb IH 05/01/24 18:57 3 ml STAT ONE Administration Albuterol/Ipratropium Confirm 05/01/24 19:01 Ipratropium/Albuterol Sulfate 3 Ml Ampul.Neb Administered 05/01/24 19:02 Dose 3 ml IH .STK-MED ONE Albuterol/Ipratropium 3 ml 05/01/24 22:13 05/01/24 22:16 Ipratropium/Albuterol Sulfate 3 Ml Ampul.Neb IH 05/01/24 22:14 3 ml STAT ONE Administration Albuterol/Ipratropium Confirm 05/01/24 22:14 Ipratropium/Albuterol Sulfate 3 Ml Ampul.Neb Administered 05/01/24 22:15 Dose 3 ml IH .STK-MED ONE Methylprednisolone Sodium 0 mg 05/01/24 18:56 05/01/24 19:00 Succinate 125 mg/ Sterile IV 05/01/24 18:57 125 mg Water 2 ml STAT ONE Administration Methylprednisolone Sodium Succinate Confirm 05/01/24 18:59 Methylprednis Sod Succ 125 Mg/2 Ml Vial Administered 05/01/24 19:00 Dose 125 mg .ROUTE .STK-MED ONE Sterile Water Confirm 05/01/24 18:59 Water For Injection,Sterile 10 Ml Vial Administered 05/01/24 19:00 Dose 10 ml IJ .STK-MED ONE Lab/Rad Data: Laboratory Result Diagrams 05/01/24 18:55 05/01/24 18:55 Laboratory Results 05/01/24 05/01/24 05/01/24 Range/Units 19:18 18:55 18:55 WBC (3.98-10.04) x10^3/uL RBC (3.93-5.22) x10^6/uL Hgb (11.2-15.7) g/dL Hct (34.1-44.9) % MCV (79.4-94.8) fL MCH (25.6-32.2) pg MCHC (32.2-35.5) g/dL RDW (11.7-14.4) % Plt Count (182-369) x10^3/uL MPV (9.4-12.3) fL Gran % (34.0-71.1) % Immature Gran % (Auto) (0.001-0.429) % Nucleat RBC Rel Count (0.00-0.2) % Eos # (Auto) (0.04-0.36) x10^3/uL Immature Gran # (Auto) (0.001-0.031) x10^3u/L Absolute Lymphs (auto) (1.18-3.74) x10^3/uL Absolute Monos (auto) (0.24-0.86) x10^3/uL Absolute Nucleated RBC (0.00-0.012) x10^3u/L Lymphocytes % (19.3-51.7) % Monocytes % (4.7-12.5) % Eosinophils % (0.7-5.8) % Basophils % (0.1-1.2) % Absolute Granulocytes (1.56-6.13) x10^3/uL Basophils # (0.01-0.08) x10^3/uL D-Dimer 0.31 (0.0-0.50) mg/L Sodium (135-145) mmol/L Potassium (3.5-5.1) mmol/L Chloride (98-107) mmol/L Carbon Dioxide (22-30) mmol/L Anion Gap (5-15) MEQ/L BUN (7-17) mg/dL Creatinine (0.52-1.04) mg/dL Estimated GFR ML/MIN Glucose (74-106) mg/dL Calcium (8.4-10.2) mg/dL Total Bilirubin (0.2-1.3) mg/dL AST (14-36) U/L ALT (0-35) U/L Alkaline Phosphatase (38-126) U/L Troponin I < 0.012 (0.000-0.033) ng/mL Serum Total Protein (6.3-8.2) g/dL Albumin (3.5-5.0) g/dL Influenza Type A Ag NEGATIVE (NEGATIVE) Influenza Type B Ag NEGATIVE (NEGATIVE) RSV (PCR) NEGATIVE (NEGATIVE) SARS-CoV-2 (PCR) NEGATIVE (NEGATIVE) 05/01/24 05/01/24 Range/Units 18:55 18:55 WBC 14.9 H (3.98-10.04) x10^3/uL RBC 4.91 (3.93-5.22) x10^6/uL Hgb 14.3 (11.2-15.7) g/dL Hct 41.5 (34.1-44.9) % MCV 84.5 (79.4-94.8) fL MCH 29.1 (25.6-32.2) pg MCHC 34.5 (32.2-35.5) g/dL RDW 12.8 (11.7-14.4) % Plt Count 294 (182-369) x10^3/uL MPV 9.9 (9.4-12.3) fL Gran % 51.8 (34.0-71.1) % Immature Gran % (Auto) 0.3 (0.001-0.429) % Nucleat RBC Rel Count 0.0 (0.00-0.2) % Eos # (Auto) 0.96 H (0.04-0.36) x10^3/uL Immature Gran # (Auto) 0.05 H (0.001-0.031) x10^3u/L Absolute Lymphs (auto) 4.91 H (1.18-3.74) x10^3/uL Absolute Monos (auto) 1.13 H (0.24-0.86) x10^3/uL Absolute Nucleated RBC 0.00 (0.00-0.012) x10^3u/L Lymphocytes % 32.9 (19.3-51.7) % Monocytes % 7.6 (4.7-12.5) % Eosinophils % 6.4 H (0.7-5.8) % Basophils % 1.0 (0.1-1.2) % Absolute Granulocytes 7.74 H (1.56-6.13) x10^3/uL Basophils # 0.15 H (0.01-0.08) x10^3/uL D-Dimer (0.0-0.50) mg/L Sodium 140 (135-145) mmol/L Potassium 3.9 (3.5-5.1) mmol/L Chloride 108 H (98-107) mmol/L Carbon Dioxide 18 L (22-30) mmol/L Anion Gap 17.9 H (5-15) MEQ/L BUN 5 L (7-17) mg/dL Creatinine 0.66 (0.52-1.04) mg/dL Estimated GFR 118.7 ML/MIN Glucose 91 (74-106) mg/dL Calcium 9.5 (8.4-10.2) mg/dL Total Bilirubin 0.40 (0.2-1.3) mg/dL AST 43 H (14-36) U/L ALT 51 H (0-35) U/L Alkaline Phosphatase 74 (38-126) U/L Troponin I (0.000-0.033) ng/mL Serum Total Protein 7.9 (6.3-8.2) g/dL Albumin 4.4 (3.5-5.0) g/dL Influenza Type A Ag (NEGATIVE) Influenza Type B Ag (NEGATIVE) RSV (PCR) (NEGATIVE) SARS-CoV-2 (PCR) (NEGATIVE) - Progress Progress: improved Progress Note: 34-year-old female presents to emergency department for evaluation of a cough and shortness of breath. On exam patient is wheezing breath sounds are diminished. D-dimer negative. Troponin negative. Chest x-ray negative for acute pathology. Patient received Solu-Medrol and albuterol nebulizer treatment. Symptoms significantly improved. Patient ambulated throughout our ED. O2 sat with activity was at 97%. Patient states she felt well she think she is ready for discharge. Patient given an albuterol inhaler prior to discharge. A prescription for a Z-Brooks and prednisone was forwarded to patient's pharmacy. Patient agrees to follow-up with the primary care doctor within 48 hours for reevaluation. She voices no other complaints or concerns at this time. Portions of this note were created with voice recognition technology. There may be grammatical, spelling, punctuation or sound alike errors Complexity of problem addressed is moderate acute complicated no critical care time. Complex of data reviewed and analyzed is moderate. Test ordered chest reviewed results analyzed and correlated clinically with history and physical exam. Risk of complication and or risk of morbidity/mortality of patient management is low. Vital stable. Time spent to discharge patient is approximately 15 minutes. Plan of care established for shared decision making. No social determinants of health present to impede follow-up. Work note provided Portions of this note were created with voice recognition technology. There may be grammatical, spelling, punctuation or sound alike errors 05/01/24 22:49 Counseled pt/family regarding: lab results, diagnosis, need for follow-up, rad results - Departure Departure Disposition: Home Clinical Impression: Bronchitis, Cough Condition: Stable Critical Care Time: No Referrals: CE MILLER [Primary Care Provider] - Follow up/PCP as directed Additional Instructions: Discharge/Care Plan GABRIELLE EL was seen on 05/01/24 in the Emergency Room. The patient was counseled regarding Diagnosis,Lab results, Imaging studies, need for follow up and when to return to the Emergency Room. Prescriptions given: Discharge Note I have spoken with the patient and/or caregivers. I have explained the patient's condition, diagnosis and treatment plan based on the information available to me at this time. I have answered the patient's and/or caregiver's questions and add ressed any concerns. The patient and/or caregivers have as good understanding of the patient's diagnosis, condition and treatment plan as can be expected at this point. The vital signs have been stable. The patient's condition is stable and appropriate for discharge from the emergency department. The patient will pursue further outpatient evaluation with the primary care physician or other designated or consulting physician as outlined in the discharge instructions. The patient and/or caregivers are agreeable to this plan of care and follow-up instructions have been explained in detail. The patient and/or caregivers have received these instruction. The patient/and or caregivers are aware that any significant change in condition or worsening of symptoms should prompt an immediate return to this or the closest emergency department or call 911. Forms: Work/School Release Form Prescriptions: Prednisone 20 mg [Deltasone 20 mg] 40 mg PO DAILY 3 Days #4 tablet Azithromycin 250 mg [Zithromax 250 MG TABLET] 250 mg PO ZPACK #6 tablet
[2024-05-01 22:04] VITALS: BP 132/100
[2024-05-01 22:20] VITALS: PULSE 95; RESP 16
[2024-05-01] MEDS ORDERED: Ventolin Hfa MDI IH ONE (22:45)
[2024-05-01] MEDS: Ventolin Hfa MDI IH PRN (22:53)
--- NOTE | 2024-05-02 08:35 | XRAY ---
Indication: Cough. Short of breath. Comparison: September 03, 2022 Portable chest again demonstrates normal heart, lungs, and bony thorax.
== END 2024-05-01 22:56 | disposition home or self-care (01) ==
LOC: ED 18:43
DX: J40 Bronchitis, not specified as acute or chronic (principal); R05.1 Acute cough; R06.02 Shortness of breath; R07.9 Chest pain, unspecified; Z79.52 Long term (current) use of systemic steroids; Z79.899 Other long term (current) drug therapy
CPT/HCPCS: 0241U; 36415; 71045; 80053; 84484; 85025; 85379; 87040; 93005; 93041; 94640; 94760; 96374; 99285; 99284; J2919; A9270-GY

== ENCOUNTER 2024-05-30 18:35 | Emergency (ER) | payer SELFPAY ==
[2024-05-30 18:49] VITALS: TEMP 97
--- NOTE | 2024-05-30 19:32 | ERPHSYRPT ---
- History of Present Illness Time Seen by Provider: 05/30/24 19:20 Source: patient Exam Limitations: physical impairment Patient Subjective Stated Complaint: SOB Triage Nursing Assessment: Patient ambulated back to ED per self and transferred self to bed. Patient A+O X3. Patient's skin pink, warm and dry. Patient complains of SOB that stated a couple of hours ago. Patient states she was hanging out with her friends and had a couple of shot of liquir when she started having increased SOB. Patient's lungs clear a/p cyndy. Patient states she did wake up earlier with a dry cough and sounded wheezy this am. Patient denies pain or discomfort. Physician History: 34-year-old female history of bronchitis presents to our ED for evaluation of shortness of breath. Patient is a former smoker. Patient used to vape. She quit both approximately 2 to 3 months ago. Patient presents to our ED for evaluation of shortness of breath that started approximately 2 to 3 hours ago. However patient states that she has been coughing excessively over the past several days. No fever. No nausea vomiting or diaphoresis. No chest pain. Symptoms are mild to moderate in intensity. Shortness of breath somewhat worse with exertion. Patient otherwise feels well. She voices no other complaints or concerns at this time. Portions of this note were created with voice recognition technology. There may be grammatical, spelling, punctuation or sound alike errors Timing/Duration: today Activities at Onset: activity Severity of Dyspnea-Max: moderate Severity of Dyspnea-Current: mild Possible Cause: occasional episodes Modifying Factors: Improves With: activity Associated Symptoms: denies symptoms, No calf pain Allergies/Adverse Reactions: penicillin G Allergy (Severe, Verified 05/01/24 18:45) Shortness of Breath Penicillins Allergy (Verified 05/01/24 18:45) Home Medications: Paroxetine HCl 20 mg [Paxil 20 MG] 1 tab PO DAILY 05/30/24 [History] Hx Tetanus, Diphtheria Vaccination/Date Given: Yes Hx Influenza Vaccination/Date Given: No Hx Pneumococcal Vaccination/Date Given: No Immunizations Up to Date: Yes Travel Risk - International Travel Have you traveled outside of the country in past 3 weeks: No - Emerging Infectious Disease Are you exhibiting symptoms associated with any current EIDs: No - Review of Systems Constitutional: No Symptoms, No Fever, No Chills Eyes: No Symptoms Ears, Nose, & Throat: No Symptoms Respiratory: No Symptoms, No Cough, No Dyspnea Cardiac: No Symptoms, No Chest Pain, No Edema, No Syncope Abdominal/Gastrointestinal: No Symptoms, No Abdominal Pain, No Nausea, No Vomiting, No Diarrhea Genitourinary Symptoms: No Symptoms, No Dysuria Musculoskeletal: No Symptoms, No Back Pain, No Neck Pain Skin: No Symptoms, No Rash Neurological: No Symptoms, No Dizziness, No Focal Weakness, No Sensory Changes Psychological: No Symptoms Endocrine: No Symptoms Hematologic/Lymphatic: No Symptoms Immunological/Allergic: No Symptoms All Other Systems: Reviewed and Negative - Past Medical History Pertinent Past Medical History: Yes Neurological History: No Pertinent History, Migraines ENT History: No Pertinent History Cardiac History: No Pertinent History Respiratory History: Asthma Endocrine Medical History: Hypoglycemia Musculoskeletal History: No Pertinent History GI Medical History: Gallbladder Disease History: No Pertinent History Psycho-Social History: Depression, Anxiety Female Reproductive Disorders: No Pertinent History Other Medical History: sulfa burps, PTSD - Past Surgical History Past Surgical History: Yes Neuro Surgical History: No Pertinent History Cardiac: No Pertinent History Respiratory: No Pertinent History Gastrointestinal: Cholecystectomy Genitourinary: No Pertinent History Musculoskeletal: No Pertinent History Female Surgical History: Tubal Ligation Other Surgical History: tubal Oct 2017 Significant Family History: no pertinent family hx - Female History Hx Last Menstrual Period: 1 month ago Hx Now: No - Social History Smoking Status: Never smoker Exposure to second hand smoke: No Drug Use: marijuana - Social Determinants of Health Will the patient participate in the screening: Yes Do you worry about a steady place to live?: No Do you have any problems with any of the following?: No known problems In the past 12 months,have you had to go without utilities?: No Transportation Issues: No Has anyone in your support network made you feel unsafe?: No Have you or anyone in your house had to go w/o enough food: No - Nursing Vital Signs Nursing Vital Signs: Initial Vital Signs Temperature 97.0 F 05/30/24 18:42 Pulse Rate 96 H 05/30/24 18:42 Respiratory Rate 25 H 05/30/24 18:42 Blood Pressure 133/93 05/30/24 18:42 O2 Sat by Pulse Oximetry 95 05/30/24 18:42 Pain Scale Pain Intensity 0 - Physical Exam General Appearance: no apparent distress, alert Eye Exam: PERRL/EOMI Ears, Nose, Throat Exam: hearing grossly normal Neck Exam: normal inspection, supple, full range of motion Respiratory Exam: diminished breath sounds, wheezing Cardiovascular/Chest Exam: normal heart sounds, regular rate/rhythm Abdominal/Gastrointestinal Exam: soft, No tenderness, No distention, No mass Extremity Exam: non-tender, normal range of motion, normal inspection, no calf tenderness, no pedal edema Neurologic Exam: alert, oriented x 3, cooperative, 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, sensation nml, No motor deficits Skin Exam: normal color, warm, No dry Lymphatic Exam: No adenopathy SpO2 Interpretation: normal SpO2: 95 O2 Delivery: Room Air - Course Nursing assessment & vital signs reviewed: Yes EKG Interpreted by Me: RATE ([id number]), Sinus Rhythm, NORMAL AXIS, NORMAL INTERVALS, NORMAL QRS Ordered Tests: Active Orders 24 hr Category Date Time Status Change Analyst STAT Care 05/30/24 19:28 Active EKG-ER Only STAT Care 05/30/24 19:27 Active IV Insertion STAT Care 05/30/24 19:27 Active Pulse Oximetry (ED) STAT Care 05/30/24 19:27 Active CHEST 1 VIEW (PORTABLE) Stat Exams 05/30/24 20:12 Taken BLOOD CULTURE Stat Lab 05/30/24 19:52 Received CBC W DIFF Stat Lab 05/30/24 18:50 Completed CMP Stat Lab 05/30/24 18:50 Completed D-DIMER QUANTITATIVE Stat Lab 05/30/24 18:50 Completed NT PRO BNPII Stat Lab 05/30/24 18:50 Completed TROPONIN AM.LAB Lab 05/31/24 04:00 Ordered Respiratory Therapy Assessment DAILY RT 05/30/24 19:50 Active Medication Summary Generic Name Dose Route Start Last Admin Trade Name Freq PRN Reason Stop Dose Admin Albuterol Sulfate 8 gm 05/30/24 21:29 05/30/24 21:38 Albuterol Sulfate 8 Gm Mdi Hfa 06/29/24 21:28 8 gm Q4-6HPRN PRN Administration SHORTNESS OF BREATH/WHEEZING Discontinued Medications Generic Name Dose Route Start Last Admin Trade Name Freq PRN Reason Stop Dose Admin Albuterol Sulfate 2.5 mg 05/30/24 21:03 05/30/24 21:37 Albuterol Sulfate 2.5 Mg/3 Ml Neb 05/30/24 21:04 2.5 mg STAT ONE Administration Albuterol Sulfate Confirm 05/30/24 21:12 Albuterol Sulfate 2.5 Mg/3 Ml Neb Administered 05/30/24 21:13 Dose 2.5 mg IH .STK-MED ONE Albuterol/Ipratropium 3 ml 05/30/24 19:27 05/30/24 19:49 Ipratropium/Albuterol Sulfate 3 Ml Ampul.Neb IH 05/30/24 19:28 3 ml STAT ONE Administration Albuterol/Ipratropium Confirm 05/30/24 19:39 Ipratropium/Albuterol Sulfate 3 Ml Ampul.Neb Administered 05/30/24 19:40 Dose 3 ml IH .STK-MED ONE Methylprednisolone Sodium 0 mg 05/30/24 19:27 05/30/24 19:41 Succinate 125 mg/ Sterile IV 05/30/24 19:28 125 mg Water 2 ml STAT ONE Administration Methylprednisolone Sodium Succinate Confirm 05/30/24 19:35 Methylprednis Sod Succ 125 Mg/2 Ml Vial Administered 05/30/24 19:36 Dose 125 mg .ROUTE .STK-MED ONE Sterile Water Confirm 05/30/24 19:35 Water For Injection,Sterile 10 Ml Vial Administered 05/30/24 19:36 Dose 10 ml IJ .STK-MED ONE Lab/Rad Data: Laboratory Result Diagrams 05/30/24 18:50 05/30/24 18:50 Laboratory Results 05/30/24 05/30/24 05/30/24 Range/Units 19:52 18:50 18:50 WBC (3.98-10.04) x10^3/uL RBC (3.93-5.22) x10^6/uL Hgb (11.2-15.7) g/dL Hct (34.1-44.9) % MCV (79.4-94.8) fL MCH (25.6-32.2) pg MCHC (32.2-35.5) g/dL RDW (11.7-14.4) % Plt Count (182-369) x10^3/uL MPV (9.4-12.3) fL Gran % (34.0-71.1) % Immature Gran % (Auto) (0.001-0.429) % Nucleat RBC Rel Count (0.00-0.2) % Eos # (Auto) (0.04-0.36) x10^3/uL Immature Gran # (Auto) (0.001-0.031) x10^3u/L Absolute Lymphs (auto) (1.18-3.74) x10^3/uL Absolute Monos (auto) (0.24-0.86) x10^3/uL Absolute Nucleated RBC (0.00-0.012) x10^3u/L Lymphocytes % (19.3-51.7) % Monocytes % (4.7-12.5) % Eosinophils % (0.7-5.8) % Basophils % (0.1-1.2) % Absolute Granulocytes (1.56-6.13) x10^3/uL Basophils # (0.01-0.08) x10^3/uL D-Dimer 0.31 (0.0-0.50) mg/L Sodium 141 (135-145) mmol/L Potassium 3.6 (3.5-5.1) mmol/L Chloride 107 (98-107) mmol/L Carbon Dioxide 20 L (22-30) mmol/L Anion Gap 17.6 H (5-15) MEQ/L BUN 2 L (7-17) mg/dL Creatinine 0.65 (0.52-1.04) mg/dL Estimated GFR 119.2 ML/MIN Glucose 96 (74-106) mg/dL Calcium 8.8 (8.4-10.2) mg/dL Total Bilirubin 0.50 (0.2-1.3) mg/dL AST 66 H (14-36) U/L ALT 50 H (0-35) U/L Alkaline Phosphatase 72 (38-126) U/L NT-Pro-B Natriuret Pep 69.6 (<300) pg/mL Serum Total Protein 7.7 (6.3-8.2) g/dL Albumin 4.4 (3.5-5.0) g/dL Influenza Type A Ag NEGATIVE (NEGATIVE) Influenza Type B Ag NEGATIVE (NEGATIVE) RSV (PCR) NEGATIVE (NEGATIVE) SARS-CoV-2 (PCR) NEGATIVE (NEGATIVE) 05/30/24 Range/Units 18:50 WBC 10.7 H (3.98-10.04) x10^3/uL RBC 4.82 (3.93-5.22) x10^6/uL Hgb 13.9 (11.2-15.7) g/dL Hct 40.6 (34.1-44.9) % MCV 84.2 (79.4-94.8) fL MCH 28.8 (25.6-32.2) pg MCHC 34.2 (32.2-35.5) g/dL RDW 13.0 (11.7-14.4) % Plt Count 299 (182-369) x10^3/uL MPV 9.8 (9.4-12.3) fL Gran % 45.6 (34.0-71.1) % Immature Gran % (Auto) 0.3 (0.001-0.429) % Nucleat RBC Rel Count 0.0 (0.00-0.2) % Eos # (Auto) 0.51 H (0.04-0.36) x10^3/uL Immature Gran # (Auto) 0.03 (0.001-0.031) x10^3u/L Absolute Lymphs (auto) 4.26 H (1.18-3.74) x10^3/uL Absolute Monos (auto) 0.91 H (0.24-0.86) x10^3/uL Absolute Nucleated RBC 0.00 (0.00-0.012) x10^3u/L Lymphocytes % 39.9 (19.3-51.7) % Monocytes % 8.5 (4.7-12.5) % Eosinophils % 4.8 (0.7-5.8) % Basophils % 0.9 (0.1-1.2) % Absolute Granulocytes 4.86 (1.56-6.13) x10^3/uL Basophils # 0.10 H (0.01-0.08) x10^3/uL D-Dimer (0.0-0.50) mg/L Sodium (135-145) mmol/L Potassium (3.5-5.1) mmol/L Chloride (98-107) mmol/L Carbon Dioxide (22-30) mmol/L Anion Gap (5-15) MEQ/L BUN (7-17) mg/dL Creatinine (0.52-1.04) mg/dL Estimated GFR ML/MIN Glucose (74-106) mg/dL Calcium (8.4-10.2) mg/dL Total Bilirubin (0.2-1.3) mg/dL AST (14-36) U/L ALT (0-35) U/L Alkaline Phosphatase (38-126) U/L NT-Pro-B Natriuret Pep (<300) pg/mL Serum Total Protein (6.3-8.2) g/dL Albumin (3.5-5.0) g/dL Influenza Type A Ag (NEGATIVE) Influenza Type B Ag (NEGATIVE) RSV (PCR) (NEGATIVE) SARS-CoV-2 (PCR) (NEGATIVE) - Progress Progress: improved Air Movement: good Progress Note: 34-year-old female presents to emergency department for evaluation of shortness of breath. No chest pain. Patient has a history of bronchitis and states her symptoms are the same. On exam patient is wheezing breath sounds are diminished. D-dimer normal. Chest x-ray no acute pathology. Patient treated with steroids and neb Gaby treatment. Patient observed for approximately 3 to 4 hours. Symptoms significantly improved. We advise hospitalization as there is some residual wheezing present. Patient is ambulatory O2 was 94%. Patient declined admission. Patient states she feels well. Patient has to work in the morning and states that she does not want to be admitted. We provided patient an inhaler prior to discharge. A prescription for prednisone forwarded to patient's pharmacy. Patient agrees to follow-up with the primary care doctor within 48 hours for reevaluation. She voices no other complaints or concerns at this time. Portions of this note were created with voice recognition technology. There may be grammatical, spelling, punctuation or sound alike errors Complexity of problem addressed is moderate acute complicated. No critical care time. Complex of data reviewed and analyzed is moderate. Test ordered test reviewed results analyzed and correlated clinically with history and physical exam. Risk of complication and or risk of morbidity/mortality of patient management is moderate. A prescription for prednisone forwarded to patient's pharmacy. Albuterol inhaler provided to patient as well. No indication for antibiotic at this time. Vital stable. Time spent to discharge patient is approximately 15 minutes. Plan of care established for shared decision making. No social determinants of health present to impede follow-up. Portions of this note were created with voice recognition technology. There may be grammatical, spelling, punctuation or sound alike errors 05/30/24 22:38 05/30/24 22:38 Blood Culture(s) Obtained: Yes Antibiotics given: No Counseled pt/family regarding: lab results, diagnosis, need for follow-up, rad results - Departure Departure Disposition: Home Clinical Impression: Bronchitis Condition: Stable Critical Care Time: No Referrals: CE MILLER [Primary Care Provider] - Follow up/PCP as directed Additional Instructions: Discharge/Care Plan GABRIELLE EL was seen on 05/30/24 in the Emergency Room. The patient was counseled regarding Diagnosis,Lab results, Imaging studies, need for follow up and when to return to the Emergency Room. Prescriptions given: Discharge Note I have spoken with the patient and/or caregivers. I have explained the patient's condition, diagnosis and treatment plan based on the information available to me at this time. I have answered the patient's and/or caregiver's questions and addressed any concerns. The patient and/or caregivers have as good understanding of the patient's diagnosis, condition and treatment plan as can be expected at this point. The vital signs have been stable. The patient's condition is stable and appropriate for discharge from the emergency department. The patient will pursue further outpatient evaluation with the primary care physician or other designated or consulting physician as outlined in the discharge instructions. The patient and/or caregivers are agreeable to this plan of care and follow-up instructions have been explained in detail. The patient and/or caregivers have received these instruction. The patient/and or caregivers are aware that any significant change in condition or worsening of symptoms should prompt an immediate return to this or the closest emergency department or call 911. Prescriptions: Prednisone 10 mg [Deltasone 10 mg] 40 mg PO DAILY 3 Days #12 tablet
[2024-05-30] MEDS ORDERED: Sterile H2O 10 ml IJ ONE (19:35)
[2024-05-30] MEDS ORDERED: solu-MEDROL ONE (19:35)
[2024-05-30 19:36] LABS: Absolute Neutrophil Ct (ANC) 4.86 x10^3/uL (1.56-6.13); BASOPHIL % 0.9 % (0.1-1.2); Eosinophil % 4.8 % (0.7-5.8); Eosinophil (Absolute #) 0.51 x10^3/uL (0.04-0.36); Hematocrit 40.6 % (34.1-44.9); Hemoglobin 13.9 g/dL (11.2-15.7); IMMATURE GRAN # 0.03 x10^3u/L (0.001-0.031); IMMATURE GRAN % 0.3 % (0.001-0.429); Lymphocyte (Absolute #) 4.26 x10^3/uL (1.18-3.74); Lymphocytes % 39.9 % (19.3-51.7); Mean Cell Volume 84.2 fL (79.4-94.8); Mean Corpuscular Hemoglobin 28.8 pg (25.6-32.2); Mean Corpuscular Hgb Concent. 34.2 g/dL (32.2-35.5); Mean Platelet Volume 9.8 fL (9.4-12.3); Monocyte (Absolute #) 0.91 x10^3/uL (0.24-0.86); Monocytes % 8.5 % (4.7-12.5); Neutrophil % 45.6 % (34.0-71.1); Platelet Count 299 x10^3/uL (182-369); Red Blood Count 4.82 x10^6/uL (3.93-5.22); White Blood Count 10.7 x10^3/uL (3.98-10.04)
[2024-05-30] MEDS ORDERED: DUONEB 0.5-3 MG/3 ml Neb IH ONE (19:39)
[2024-05-30] MEDS: solu-MEDROL 125 MG, Sterile H2O 10 ml 2 ML IV ONE (19:41)
[2024-05-30] MEDS: DUONEB 0.5-3 MG/3 ml Neb IH ONE (19:49)
[2024-05-30 19:51] LABS: Potassium 3.6 mmol/L (3.5-5.1)
[2024-05-30 19:59] LABS: ALBUMIN 4.4 g/dL (3.5-5.0); BILIRUBIN,TOTAL 0.5 mg/dL (0.2-1.3); Calcium 8.8 mg/dL (8.4-10.2); Creatinine 1 0.65 mg/dL (0.52-1.04); EST GLOMERULAR FILTRATION RATE 119.2 ML/MIN; NT PRO BNPII 69.6 pg/mL (<300); Total Protein 7.7 g/dL (6.3-8.2)
[2024-05-30 20:00] LABS: ANION GAP 17.6 MEQ/L (5-15)
[2024-05-30 20:33] LABS: INFLUENZA A NEGATIVE (NEGATIVE); INFLUENZA B NEGATIVE (NEGATIVE); RESPIRATORY SYNCTIAL VIRUS NEGATIVE (NEGATIVE); SARS-CoV-2 Xpert Express NEGATIVE (NEGATIVE)
[2024-05-30] MEDS ORDERED: PROVENTIL 2.5 MG/3 ML NEB IH ONE (21:12)
[2024-05-30] MEDS ORDERED: Ventolin Hfa MDI IH ONE (21:31)
[2024-05-30] MEDS: PROVENTIL 2.5 MG/3 ML NEB IH ONE (21:37)
[2024-05-30] MEDS: Ventolin Hfa MDI IH PRN (21:38)
[2024-05-30 21:39] VITALS: O2SAT 95
[2024-05-30 22:52] VITALS: BP 146/97; PULSE 99; RESP 14
--- NOTE | 2024-05-31 08:41 | XRAY ---
Indication: Short of breath. Comparison: April 11, 2024 Portable chest less inflated and remains clear. Heart not enlarged. Bony thorax intact. No new/acute findings.
== END 2024-05-30 22:30 | disposition home or self-care (01) ==
LOC: ED 18:35
DX: J40 Bronchitis, not specified as acute or chronic (principal); R06.02 Shortness of breath; R05.1 Acute cough; Z79.52 Long term (current) use of systemic steroids; Z79.899 Other long term (current) drug therapy
CPT/HCPCS: 0241U; 36415; 71045; 80053; 83880; 85025; 85379; 87040; 93005; 93041; 94640; 94760; 96374; 99285; 99284; J2919; J7609; A9270-GY

== ENCOUNTER 2024-07-12 10:55 | Emergency (ER) | payer MEDICAID ==
[2024-07-12 11:20] VITALS: PULSE 78; O2SAT 98
[2024-07-12] MEDS ORDERED: Sterile H2O 10 ml IJ ONE (11:29)
[2024-07-12 11:30] VITALS: TEMP 97.5
[2024-07-12] MEDS ORDERED: Pepcid 20 MG ONE (11:30)
[2024-07-12] MEDS ORDERED: solu-MEDROL ONE (11:30)
[2024-07-12] MEDS: Pepcid 20 MG PO ONE (11:32)
[2024-07-12] MEDS: solu-MEDROL 125 MG, Sterile H2O 10 ml 2 ML IM ONE (11:33)
--- NOTE | 2024-07-12 12:05 | ERPHSYRPT ---
- History of Present Illness Time Seen by Provider: 07/12/24 10:59 Source: patient Exam Limitations: no limitations Patient Subjective Stated Complaint: C/O swelling to right side of face with ithcing and burning that began around 1pm yesterday. Denies new soaps, lotions, shampoo, meds, etc. Indicates she works at [employer] and takes money. She recalls handling some particularly dirty money yesterday and forgeting to wash her hand right away and may have touched her face. Triage Nursing Assessment: Patient ambulated back to ER without difficulties. No SOB. Airway patent. Right side of face is swollen. Alert and oriented. Physician History: 34 years old female presented in the ER with complaints of right-sided facial swelling which started with itching and burning sensation yesterday afternoon and continued to go worse. Patient reports she has been taking Benadryl but the swelling is increasing and initially it was on the right side of the face but now having the forehead and the left side of the face as well since morning. No difficulty movements of eyeball. No eye discharge. No toothache or sinus issues. 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 No difficulty breathing/swallowing/tongue swelling reported. Allergies/Adverse Reactions: penicillin G Allergy (Severe, Verified 07/12/24 11:06) Shortness of Breath Penicillins Allergy (Verified 07/12/24 11:06) Hx Tetanus, Diphtheria Vaccination/Date Given: Yes Hx Influenza Vaccination/Date Given: No Hx Pneumococcal Vaccination/Date Given: No Immunizations Up to Date: Yes Travel Risk - International Travel Have you traveled outside of the country in past 3 weeks: No - Emerging Infectious Disease Are you exhibiting symptoms associated with any current EIDs: No - Review of Systems Constitutional: No Symptoms Eyes: No Symptoms Respiratory: No Symptoms Cardiac: No Symptoms Abdominal/Gastrointestinal: No Symptoms Genitourinary Symptoms: No Symptoms Skin: Skin Lesions Neurological: No Symptoms Endocrine: No Symptoms Hematologic/Lymphatic: No Symptoms - Past Medical History Pertinent Past Medical History: Yes Neurological History: Migraines ENT History: No Pertinent History Cardiac History: No Pertinent History Respiratory History: No Pertinent History Endocrine Medical History: Hypoglycemia Musculoskeletal History: No Pertinent History GI Medical History: Gallbladder Disease History: No Pertinent History Psycho-Social History: Anxiety, Depression, Other Female Reproductive Disorders: No Pertinent History Other Medical History: PTSD - Past Surgical History Past Surgical History: Yes Neuro Surgical History: No Pertinent History Cardiac: No Pertinent History Respiratory: No Pertinent History Gastrointestinal: Cholecystectomy Genitourinary: No Pertinent History Musculoskeletal: No Pertinent History Female Surgical History: Tubal Ligation Other Surgical History: tubal Oct 2017 Significant Family History: no pertinent family hx - Female History Hx Last Menstrual Period: 1 month ago Hx Now: No (tubal) - Social History Smoking Status: Never smoker Exposure to second hand smoke: No Drug Use: none - Social Determinants of Health Will the patient participate in the screening: Yes Do you worry about a steady place to live?: No Do you have any problems with any of the following?: No known problems In the past 12 months,have you had to go without utilities?: No Transportation Issues: No Has anyone in your support network made you feel unsafe?: No Have you or anyone in your house had to go w/o enough food: No - Nursing Vital Signs Nursing Vital Signs: Initial Vital Signs Temperature 97.5 F 07/12/24 11:05 O2 Sat by Pulse Oximetry 98 07/12/24 11:05 Pain Scale Pain Intensity 3 - Physical Exam General Appearance: no apparent distress Eye Exam: PERRL/EOMI, eyes nml inspection Ears, Nose, Throat Exam: moist mucous membranes, other (left facial swelling with mild increased tem , non tender , ) Neck Exam: normal inspection, non-tender, supple, full range of motion Respiratory Exam: normal breath sounds, lungs clear Cardiovascular Exam: regular rate/rhythm, normal heart sounds Neurologic Exam: alert, oriented x 3, cooperative, 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 nml as tested SpO2 Interpretation: normal SpO2: 98 O2 Delivery: Room Air Ordered Tests: Medication Summary Discontinued Medications Generic Name Dose Route Start Last Admin Trade Name Freq PRN Reason Stop Dose Admin Methylprednisolone Sodium 0 mg 07/12/24 11:25 07/12/24 11:33 Succinate 125 mg/ Sterile IM 07/12/24 11:26 125 mg Water 2 ml STAT ONE Administration Famotidine 40 mg 07/12/24 11:25 07/12/24 11:32 Famotidine 20 Mg Tablet PO 07/12/24 11:26 40 mg STAT ONE Administration Famotidine Confirm 07/12/24 11:30 Famotidine 20 Mg Tablet Administered 07/12/24 11:31 Dose 40 mg .ROUTE .STK-MED ONE Methylprednisolone Sodium Succinate Confirm 07/12/24 11:30 Methylprednis Sod Succ 125 Mg/2 Ml Vial Administered 07/12/24 11:31 Dose 125 mg .ROUTE .STK-MED ONE Sterile Water Confirm 07/12/24 11:29 Water For Injection,Sterile 10 Ml Vial Administered 07/12/24 11:30 Dose 10 ml IJ .STK-MED ONE - Progress Progress: unchanged Progress Note: 07/12/24 12:01 34 years old is evaluated in the ER for facial swelling after she accidentally came across some allergen which she is unsure. She has been taking Benadryl, has no signs of periorbital cellulitis, more of a superficial itching, minimal erythema at some places. I believe patient has allergic reaction, given Solu-Medrol and Pepcid. She is advised to continue with steroids Benadryl and Pepcid to go home and outpatient follow-up. Discussed signs symptoms of worsening needing return to ER which she seems understanding. Stable for discharge. Counseled pt/family regarding: diagnosis, need for follow-up Medical Desision Making - Diagnostic Testing Diagnostic test were ordered, analyzed, and reviewed by me: No - Risk of complications The pt has a mod risk of morbidity or mortality based on: Need for prescription drug management - Departure Departure Disposition: Home Clinical Impression: Allergic dermatitis Condition: Stable Critical Care Time: No Referrals: CE MILLER [Primary Care Provider, [facility]] - Follow up with PCP 1 day Instructions: Allergic reaction - ED discharge instructions Additional Instructions: Follow-up with primary care physician for reevaluation. Return to ER for increasing swelling or if having difficulty movements of eyes, redness of high/fever chills etc. Prescriptions: Diphenhydramine HCl 25 mg [Benadryl 25 mg Capsule] 25 mg PO Q4H PRN PRN # 20 cap PRN Reason: Allergies Prednisone 20 mg [Deltasone 20 mg] 60 mg PO DAILY 5 Days #15 tablet Famotidine 20 mg [Pepcid 20 MG] 20 mg PO BID #14 tablet
[2024-07-12 12:10] VITALS: BP 115/74
== END 2024-07-12 12:19 | disposition home or self-care (01) ==
LOC: ED 10:55
DX: L23.9 Allergic contact dermatitis, unspecified cause (principal); R22.0 Localized swelling, mass and lump, head; Z79.52 Long term (current) use of systemic steroids; Z79.899 Other long term (current) drug therapy
CPT/HCPCS: 96372; 99283; J2919; A9270-GY

== ENCOUNTER 2025-01-15 20:50 | Emergency (ER) | payer MEDICAID ==
[2025-01-15 20:55] VITALS: TEMP 96.2; O2SAT 97
[2025-01-15 21:08] LABS: BASOPHIL % 0.6 % (0.1-1.2); Basophil (Absolute #) 0.10 x10^3/uL (0.01-0.08); Eosinophil (Absolute #) 0.72 x10^3/uL (0.04-0.36); Hematocrit 43.1 % (34.1-44.9); Hemoglobin 14.8 g/dL (11.2-15.7); IMMATURE GRAN # 0.05 x10^3u/L (0.001-0.031); IMMATURE GRAN % 0.3 % (0.001-0.429); Lymphocyte (Absolute #) 4.98 x10^3/uL (1.18-3.74); Mean Corpuscular Hemoglobin 29.7 pg (25.6-32.2); Mean Corpuscular Hgb Concent. 34.3 g/dL (32.2-35.5); Monocyte (Absolute #) 0.88 x10^3/uL (0.24-0.86); NUCLEATED RBC # 0.00 x10^3u/L (0.00-0.012); NUCLEATED RBC % 0.0 % (0.00-0.2); Platelet Count 299 x10^3/uL (182-369); Red Blood Count 4.98 x10^6/uL (3.93-5.22); White Blood Count 15.6 x10^3/uL (3.98-10.04)
--- NOTE | 2025-01-15 21:09 | ERPHSYRPT ---
- History of Present Illness Time Seen by Provider: 01/15/25 21:00 Historian: patient Physician History: Is a 34-year-old female who smokes who presents with 2 weeks of productive cough. States that she has had a fever and felt like her eyes are burning at times. She states that the fevers resolved but she continues to cough up green phlegm. She reports waking this morning and noting some substernal sharp pain worse with movement. She feels mildly short of breath and took a nebulizer.. Did not take any medication for the pain. She reports it does not radiate. Is not exertional. She states that sometimes increases with coughing. No lower extremity swelling. Aspirin Treatment Today: no aspirin today Allergies/Adverse Reactions: penicillin G Allergy (Severe, Verified 01/15/25 20:55) Shortness of Breath Penicillins Allergy (Verified 01/15/25 20:55) Hx Tetanus, Diphtheria Vaccination/Date Given: Yes Hx Influenza Vaccination/Date Given: No Hx Pneumococcal Vaccination/Date Given: No Travel Risk - Emerging Infectious Disease Are you exhibiting symptoms associated with any current EIDs: No - Review of Systems Constitutional: No Fever, No Chills Eyes: No Symptoms Ears, Nose, & Throat: No Symptoms Respiratory: Cough, No Dyspnea Cardiac: Chest Pain, No Edema, No Syncope Abdominal/Gastrointestinal: No Abdominal Pain, No Nausea, No Vomiting, No Diarrhea Genitourinary Symptoms: No Dysuria Musculoskeletal: No Back Pain, No Neck Pain Skin: No Rash Neurological: No Dizziness, No Focal Weakness, No Sensory Changes Psychological: No Symptoms Endocrine: No Symptoms All Other Systems: Reviewed and Negative - Past Medical History Pertinent Past Medical History: Yes Neurological History: Migraines ENT History: No Pertinent History Cardiac History: No Pertinent History Respiratory History: No Pertinent History Endocrine Medical History: Hypoglycemia Musculoskeletal History: No Pertinent History GI Medical History: Gallbladder Disease History: No Pertinent History Psycho-Social History: Anxiety, Depression, Other Female Reproductive Disorders: No Pertinent History Other Medical History: PTSD - Past Surgical History Past Surgical History: Yes Neuro Surgical History: No Pertinent History Cardiac: No Pertinent History Respiratory: No Pertinent History Gastrointestinal: Cholecystectomy Genitourinary: No Pertinent History Musculoskeletal: No Pertinent History Female Surgical History: Tubal Ligation Other Surgical History: tubal Oct 2017 Significant Family History: no pertinent family hx - Female History Hx Last Menstrual Period: 1 month ago Hx Now: No - Social History Smoking Status: Never smoker Exposure to second hand smoke: No Drug Use: none - Social Determinants of Health Will the patient participate in the screening: Yes Do you worry about a steady place to live?: No In the past 12 months,have you had to go without utilities?: No Transportation Issues: No Has anyone in your support network made you feel unsafe?: No Have you or anyone in your house had to go w/o enough food: No - Nursing Vital Signs Nursing Vital Signs: Initial Vital Signs Pulse Rate 96 H 01/15/25 20:52 Respiratory Rate 22 01/15/25 20:52 Blood Pressure 120/87 01/15/25 20:52 O2 Sat by Pulse Oximetry 98 01/15/25 20:52 Pain Scale Pain Intensity 8 - Physical Exam General Appearance: no apparent distress, alert Eye Exam: PERRL/EOMI, eyes nml inspection Ears, Nose, Throat Exam: normal ENT inspection, moist mucous membranes Neck Exam: normal inspection, non-tender, supple, full range of motion Respiratory Exam: normal breath sounds, lungs clear, No respiratory distress Cardiovascular Exam: regular rate/rhythm, normal heart sounds, other (With anterior chest wall tenderness that reproduces symptoms) Gastrointestinal/Abdomen Exam: soft, No tenderness, No mass Back Exam: normal inspection, No CVA tenderness, No vertebral tenderness Extremity Exam: normal inspection, normal range of motion Neurologic Exam: alert, oriented x 3, cooperative, normal mood/affect, sensation nml, No motor deficits Skin Exam: normal color, warm, dry SpO2: 97 Ordered Tests: Active Orders 24 hr Category Date Time Status EKG-ER Only STAT Care 01/15/25 21:03 Active IV Insertion STAT Care 01/15/25 21:03 Active CHEST 1 VIEW (PORTABLE) Stat Exams 01/15/25 21:03 Taken BMP Stat Lab 01/15/25 20:40 Completed CBC W DIFF Stat Lab 01/15/25 20:40 Completed TROPONIN Q4H Lab 01/15/25 20:40 Completed TROPONIN Q4H Lab 01/16/25 01:15 Ordered TROPONIN Q4H Lab 01/16/25 05:15 Ordered Lab/Rad Data: Laboratory Result Diagrams 01/15/25 20:40 01/15/25 20:40 Laboratory Results 01/15/25 01/15/25 01/15/25 Range/Units 20:40 20:40 20:40 WBC 15.6 H (3.98-10.04) x10^3/uL RBC 4.98 (3.93-5.22) x10^6/uL Hgb 14.8 (11.2-15.7) g/dL Hct 43.1 (34.1-44.9) % MCV 86.5 (79.4-94.8) fL MCH 29.7 (25.6-32.2) pg MCHC 34.3 (32.2-35.5) g/dL RDW 13.4 (11.7-14.4) % Plt Count 299 (182-369) x10^3/uL MPV 9.6 (9.4-12.3) fL Gran % 57.0 (34.0-71.1) % Immature Gran % (Auto) 0.3 (0.001-0.429) % Nucleat RBC Rel Count 0.0 (0.00-0.2) % Eos # (Auto) 0.72 H (0.04-0.36) x10^3/uL Immature Gran # (Auto) 0.05 H (0.001-0.031) x10^3u/L Absolute Lymphs (auto) 4.98 H (1.18-3.74) x10^3/uL Absolute Monos (auto) 0.88 H (0.24-0.86) x10^3/uL Absolute Nucleated RBC 0.00 (0.00-0.012) x10^3u/L Lymphocytes % 31.9 (19.3-51.7) % Monocytes % 5.6 (4.7-12.5) % Eosinophils % 4.6 (0.7-5.8) % Basophils % 0.6 (0.1-1.2) % Absolute Granulocytes 8.86 H (1.56-6.13) x10^3/uL Basophils # 0.10 H (0.01-0.08) x10^3/uL Sodium 135 (135-145) mmol/L Potassium 3.7 (3.5-5.1) mmol/L Chloride 103 (98-107) mmol/L Carbon Dioxide 23 (22-30) mmol/L Anion Gap 12.3 (5-15) MEQ/L BUN 5 L (7-17) mg/dL Creatinine 0.87 (0.52-1.04) mg/dL Estimated GFR 90.2 ML/MIN Glucose 123 H (74-106) mg/dL Calcium 9.2 (8.4-10.2) mg/dL Troponin I < 0.012 (0.000-0.033) ng/mL - Progress Progress Note: 01/15/25 21:07 -year-old female with history of tobacco use was 2 weeks ago productive cough with yellow phlegm. EKG sinus rhythm rate of 89 nonspecific T wave abnormality. X-ray and baseline labs obtained. 01/15/25 21:22 cxr no acute abn seen 01/15/25 22:01 Elevated white count troponin normal no other concerning findings with workup. Suspected bronchitis will treat with Doxy and steroids. Follow-up return instructions discussed - Departure Clinical Impression: Chest pain, Bronchitis Condition: Good Critical Care Time: No Referrals: CE MILLER [Primary Care Provider, [facility]] - Follow up/PCP as directed Instructions: Acute bronchitis in adults Additional Instructions: Started on an antibiotic for your cough. Take ibuprofen 600 milligrams every 6 hours for pain. Return for any worsening symptoms such as difficulty breathing increasing pain worsening symptoms or concerns. Follow-up with PCP if not better this week Prescriptions: Methylprednisolone Packet [Medrol Dosepack] 4 mg PO DAILY #1 packet Doxycycline Hyclate 100 mg [Vibramycin 100 MG] 100 mg PO BID #14 tab
[2025-01-15 21:41] LABS: Calcium 9.2 mg/dL (8.4-10.2); Carbon Dioxide 23.0 mmol/L (22-30); Creatinine 1 0.87 mg/dL (0.52-1.04); EST GLOMERULAR FILTRATION RATE 90.2 ML/MIN; Glucose 123.0 mg/dL (74-106); Potassium 3.7 mmol/L (3.5-5.1)
[2025-01-15 22:13] VITALS: BP 119/78; PULSE 83; RESP 22
--- NOTE | 2025-01-16 08:55 | XRAY ---
Indication: Chest pain. Comparison: May 30, 2024 Portable chest again demonstrates normal heart, lungs, and bony thorax.
== END 2025-01-15 22:25 | disposition home or self-care (01) ==
LOC: ED 20:50
DX: J40 Bronchitis, not specified as acute or chronic (principal); R07.9 Chest pain, unspecified; R05.1 Acute cough; Z79.52 Long term (current) use of systemic steroids; Z79.899 Other long term (current) drug therapy; Z72.0 Tobacco use